=== PATIENT | female | born 1965 | race Caucasian/White ===

== ENCOUNTER 2016-09-10 22:39 | Emergency (ER) | payer OTHER | END 2016-09-11 01:30 | disposition T | LOC: EDMED 22:39 | DX: S91.202A Unspecified open wound of left great toe with damage to nail, initial encounter (principal); Z88.0 Allergy status to penicillin; Z98.890 Other specified postprocedural states; F17.210 Nicotine dependence, cigarettes, uncomplicated; W20.8XXA Other cause of strike by thrown, projected or falling object, initial encounter; Y93.89 Activity, other specified; Y92.019 Unspecified place in single-family (private) house as the place of occurrence of the external cause; Y99.8 Other external cause status | CPT/HCPCS: J1885 ==